=== PATIENT | female | born 2000 | race Caucasian/White ===

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

== ENCOUNTER 2020-10-14 13:45 | Emergency (ER) | payer OTHER ==
--- OUTSIDE RECORDS SUMMARY | 2020-10-14 14:00 | EXTERNAL MEDICAL SUMMARY RPT | Continuity of Care Document ---
:2000 Demographics Phone Unavailable Preferred Language Unknown Marital Status Unknown Jain Affiliation Unknown Race Unknown Ethnic Group Unknown Author Organization [facility] Address [address] [place] [address] Phone Allergies Encounters Medications Problems Results
--- NOTE | 2020-10-14 14:41 | ED Physician Documentation ---
History of Present Illness - Stated complaint Stated Complaint: RT EAR PX - Chief complaint Chief Complaint: Heent - History obtained from History obtained from: Patient - Additonal information Additional information: 20-year-old woman presents with bleeding from right ear after taking out it with a Q-tip and accidentally shaving it too hard into her ear today. She has sudden onset moderate pain that is aching, localized into the eardrum. Associated with muffled hearing. No other symptoms. Review of Systems Ears: reports: Ear pain PD PAST MEDICAL HISTORY - Past Medical History Cardiovascular: None Respiratory: None Neuro: None Endocrine/Autoimmune: None GI: None DIE TESTER: None : Other HEENT: None Psych: None Musculoskeletal: Other Derm: Other - Past Surgical History Past Surgical History: Yes Ortho: Other - Present Medications Home Medications: Ambulatory Orders Medication Instructions Recorded Confirmed Benzonatate [Tessalon Perle] 100 - 200 mg PO TID PRN #30 capsule 05/29/18 Cetirizine HCl/Pseudoephedrine 1 each PO BID PRN #30 tab.er.12h 05/29/18 [Zyrtec-D Tablet] Ibuprofen [Motrin] 800 mg PO Q8H PRN #30 tablet 05/29/18 Ciprofloxacin HCl/Dexameth 7.5 ml OT BID #1 bottle 10/14/20 [Ciprodex Otic Suspension] - Allergies Allergies/Adverse Reactions: Allergies Allergy/AdvReac Type Severity Reaction Status Date / Time No Known Drug Allergies Allergy Verified 10/14/20 13:49 - Social History Does the pt smoke?: No Smoking Status: Never smoker Does the pt drink ETOH?: No Does the pt have substance abuse?: No - Immunizations Immunizations are current?: Yes - POLST Patient has POLST: No PD ED PE NORMAL - Vitals Vital signs reviewed: Yes - General General: Alert and oriented X 3, No acute distress, Well developed/nourished - HEENT HEENT: Atraumatic, PERRL, EOMI, Other (External ears normal. Right TM rupture with small amount of blood in the external auditory canal. Left TM normal.) Results - Vitals Vitals: Vital Signs - 24 hr 10/14/20 13:50 Temperature 36.8 C Heart Rate 87 Respiratory 16 Rate Blood Pressure 139/80 H O2 Saturation 100 Oxygen O2 Source Room air PD MEDICAL DECISION MAKING - ED course ED course: 20-year-old woman presents with traumatic rupture of eardrum with a Q-tip. Advised her not to use Q-tips anymore. Eardrops given. Return precautions given. Departure - Departure Disposition: 01 Home, Self Care Clinical Impression: Perforated tympanic membrane Condition: Good Instructions: ED Rupture Eardrum Traumatic Follow-Up: PABLITO LINARES MD [Physician No Access] - Prescriptions: Ciprofloxacin HCl/Dexameth [Ciprodex Otic Suspension] 7.5 ml OT BID #1 bottle
[2020-10-14 14:46] VITALS: BP 117/97
== END 2020-10-14 14:49 | disposition home or self-care (01) ==
LOC: ED 13:45
DX: S09.21XA Traumatic rupture of right ear drum, initial encounter (principal); X58.XXXA Exposure to other specified factors, initial encounter
CPT/HCPCS: 99281; 99282

== ENCOUNTER 2023-10-10 08:00 | Outpatient (CLI) | payer BC ==
[2023-10-10 23:02] LABS: CHLAMYDIA TRACHOMATIS DNA NEGATIVE (NEGATIVE); NEISSERIA GONORRHOEAE DNA NEGATIVE (NEGATIVE)
[2023-10-11 01:51] LABS: BACTERIAL VAGINOSIS DNA POSITIVE (NEGATIVE); CANDIDA GLABRATA DNA NEGATIVE (NEGATIVE); CANDIDA GROUP DNA NEGATIVE (NEGATIVE); CANDIDA KRUSEI DNA NEGATIVE (NEGATIVE); TRICHOMONAS VAGINALIS DNA NEGATIVE (NEGATIVE)
== END 2023-10-10 23:59 | disposition home or self-care (01) ==
LOC: LAB.WC 08:00
PROVIDERS: ATTEND Nurse Practitioner
DX: Z11.3 Encounter for screening for infections with a predominantly sexual mode of transmission (principal); N93.9 Abnormal uterine and vaginal bleeding, unspecified; R63.5 Abnormal weight gain
CPT/HCPCS: 36415; 81514; 82728; 83036; 84439; 84443; 84702; 85025; 87491; 87591; 87661

== ENCOUNTER 2023-10-10 12:12 | Outpatient (CLI) | payer BC ==
[2023-10-10 12:27] LABS: BASOPHILS # (AUTO) 0.1 10^3/uL (0.0-0.1); BASOPHILS % (AUTO) 0.7 %; EOSINOPHILS # (AUTO) 0.1 10^3/uL (0.0-0.7); EOSINOPHILS % (AUTO) 1.3 %; HCT - HEMATOCRIT 37.3 % (37.0-47.0); HGB - HEMOGLOBIN 12.6 g/dL (12.0-16.0); LYMPHOCYTES # (AUTO) 2.4 10^3/uL (1.5-3.5); LYMPHOCYTES % (AUTO) 34.7 %; MEAN CORPUSCULAR HEMOGLOBIN 30.9 pg (27.0-31.0); MEAN CORPUSCULAR HGB CONC 33.8 g/dL (32.0-36.0); MEAN CORPUSCULAR VOLUME 91.4 fL (81.0-99.0); MEAN PLATELET VOLUME 8.1 fL (7.9-10.8); MONOCYTES # (AUTO) 0.7 10^3/uL (0.0-1.0); MONOCYTES % (AUTO) 10.6 %; NEUTROPHILS # (AUTO) 3.6 10^3/uL (1.5-6.6); NEUTROPHILS % (AUTO) 52.6 %; PLT - PLATELET COUNT 329 10^3/uL (130-450); RED BLOOD COUNT 4.08 10^6/uL (4.20-5.40); RED CELL DISTRIBUTION WIDTH 12.2 % (12.0-15.0); WHITE BLOOD COUNT 6.9 x10^3/uL (4.8-10.8)
[2023-10-10 13:05] LABS: THYROID STIMULATING HORMONE 1.35 uIU/mL (0.34-5.60)
[2023-10-10 13:11] LABS: FERRITIN 8.8 ng/mL (11.0-306.8)
[2023-10-10 13:41] LABS: ESTIMATED AVERAGE GLUCOSE 94 mg/dL (70-100); HEMOGLOBIN A1c% 4.9 % (4.27-6.07)
== END 2023-10-10 12:13 | disposition home or self-care (01) ==
LOC: LAB 12:12
PROVIDERS: ATTEND Nurse Practitioner
DX: N93.9 Abnormal uterine and vaginal bleeding, unspecified (principal); R63.5 Abnormal weight gain
CPT/HCPCS: 36415; 82728; 83036; 84439; 84443; 84702; 85025

== ENCOUNTER 2023-11-07 16:44 | Outpatient (CLI) | payer BC ==
--- NOTE | 2023-11-08 12:14 | Ultrasound Report ---
PROCEDURE: Pelvic w/Transvaginal INDICATIONS: ABNORMAL UTERINE BLEEDING TECHNIQUE: Real-time scanning was performed of the pelvic organs, with image documentation. Additional endovagi nal scanning was necessary due to incomplete visualization of the adnexal and endometrial structures by transabdominal scanning. COMPARISON: None. FINDINGS: Uterus: Uterus is anteverted and normal in size at 8.8 x 3.8 x 5.0 cm. The myometrium is mildly het erogeneous without dominant mass.. The endometrium measures 12 mm in combined thickness. No increas ed vascularity in the myometrium or endometrium. Ovaries: The right ovary measures 4.6 x 2.8 x 4.4 cm, with a calculated ovarian volume of 29 cc. Th e left ovary measures 4.5 x 3.1 x 4.1 cm, with a calculated ovarian volume of 29 cc. The ovaries hav e a normal sonographic appearance. There is a peripherally hyperechoic cystic mass within the right ovary measuring 2.3 x 1.7 x 2.6 cm which contains a centrally cystic area. Several other follicles ap pear normal. The left ovary contains a cystic lesion measuring up to 4.1 cm demonstrating low level, linear internal echoes without internal or peripheral vascularity. No adnexal masses are seen. Other: No pathologic free abdominal or pelvic fluid. IMPRESSION: Mildly heterogeneous myometrium. Endometrial thickness within normal limits. Hemorrhagic cyst versus endometrioma within the left ovary. Follow-up in 2-3 menstrual cycles to asse ss for resolution. A peripherally echogenic cystic lesion in the right ovary may be an ovarian dermoid. Attention on fol low-up recommended. Reviewed by: Beatrice Major MD on 11/08/2023 12:13 PM PDT Approved by: Beatrice Major MD on 11/08/2023 12:13 PM PDT Station ID: [id number]
== END 2023-11-07 16:45 | disposition home or self-care (01) ==
LOC: DI 16:44
PROVIDERS: ATTEND Nurse Practitioner
DX: N93.9 Abnormal uterine and vaginal bleeding, unspecified (principal); R93.89 Abnormal findings on diagnostic imaging of other specified body structures

== ENCOUNTER 2024-01-11 15:45 | Outpatient (CLI) | payer BC ==
[~2024-01-11 15:45] MED LIST: GADOTERATE MEGLUMINE 10 MMOL/20 ML VIAL ONE
[2024-01-16] MEDS: GADOTERATE MEGLUMINE 10 MMOL/20 ML VIAL IVP ONE (11:36)
--- NOTE | 2024-01-16 14:28 | MRI Report ---
PROCEDURE: Pelvis W/WO INDICATIONS: OVARIAN CYST CONTRAST: None TECHNIQUE: Coronal ultra fast SE, sagittal T2 FSE, axial T1 FSE, axial and coronal nonbreath-hold T2 FSE. Axial dynamic ultra fast GE during administration of contrast. Optional diffusion weighted imaging and ADC may be performed. COMPARISON: 11/07/2023. FINDINGS: Image quality: Diagnostic. Bowel and peritoneum: No pathologic free pelvic fluid. Inferior colon and small bowel loops are nor mal in caliber. Genitourinary system: Bladder wall is normal in thickness. Distal ureters are non distended. Right ovarian lesion measuring 2.3 x 1.7 x 2.6 cm which demonstrates signal dropout on the fat saturation sequences, consistent with a benign dermoid. Right ovarian cystic lesion with a fluid fluid level, an d T1 hyperintense components measuring approximately 1.7 x 1.5 cm. Nodes and vessels: No pathologic pelvic or inguinal adenopathy by size criteria. Iliac vessels are normal in caliber. Soft tissues: No inguinal hernias. Bones: Marrow is normal in overall signal. IMPRESSION: Right ovarian mature teratoma. Left ovarian hemorrhagic cyst versus endometrioma. Given persistence since 11/07/2023, endometrioma is favored. Reviewed by: Manuel Ramires MD on 01/16/2024 2:27 PM PDT Approved by: Manuel Ramires MD on 01/16/2024 2:27 PM PDT Station ID: [id number]
== END 2024-01-11 15:46 | disposition home or self-care (01) ==
LOC: DI 15:45
PROVIDERS: ATTEND Nurse Practitioner
DX: Z87.42 Personal history of other diseases of the female genital tract (principal); N93.9 Abnormal uterine and vaginal bleeding, unspecified; D27.0 Benign neoplasm of right ovary; R93.89 Abnormal findings on diagnostic imaging of other specified body structures